=== PATIENT | female | born 1945 | race Caucasian/White ===

== ENCOUNTER 2017-12-19 12:00 | Emergency (ER) | payer MEDICARE, BC ==
[~2017-12-19] VITALS: Ht 170.2 cm; Wt 91.7 kg
[~2017-12-19 12:00] MED LIST: ASPI-515 PO; CEFD300C37 PO
[2017-12-19 12:08] VITALS: BP 159/71
== END 2017-12-19 13:09 | disposition home or self-care (01) ==
LOC: ED 13:03
DX: R04.0 Epistaxis (principal); I10 Essential (primary) hypertension
CPT/HCPCS: 99281